=== PATIENT | female | born 1980 | race Caucasian/White ===

== ENCOUNTER 2025-06-04 21:56 | Emergency (ER) | payer OTHER, MEDICAID, SELFPAY ==
--- NOTE | ~2025-06-04 | XR_ITS ---
CLINICAL HISTORY: cp 2 view chest x-ray. Comparison: None provided Findings: The lungs appear clear. There is no consolidation, effusion, or pneumothorax. Cardiomediastinal silhouette is within normal limits. IMPRESSION: No acute cardiopulmonary abnormality. This document has been electronically signed by: Efra Valle MD on 06/04/2025 23:00:26
--- NOTE | 2025-06-04 22:00 | ECG_ITS ---
Test Reason : CP Blood Pressure : */* mmHG Vent. Rate : 106 BPM Atrial Rate : 106 BPM P-R Int : 144 ms QRS Dur : 90 ms QT Int : 352 ms P-R-T Axes : 51 62 19 degrees QTcB Int : 467 ms Sinus tachycardia Possible Left atrial enlargement Borderline ECG No previous ECGs available Referred By: Generic ED Physician Electronically Signed By: KODAK HICKS MD
[2025-06-04 22:11] VITALS: BP 152/76; PULSE 112; RESP 18; TEMP 37; O2SAT 96; BMI 45.5
[2025-06-04 22:12] LABS: MANUAL DIFF FLAG NO
[2025-06-04 22:13] LABS: Hematocrit 36.9 % (37.0-47.0); Hemoglobin 12.7 g/dl (12.0-16.0); Imm Gran Abs Auto 0.02 X10*3/uL (0.00-0.03); Imm Gran Pct Auto 0.2 % (0.0-0.4); Lymphocytes Absolute Auto 2.4 X10*3/uL (1.2-4.9); Mean Corpuscular HGB Conc 34.4 g/dl (31.0-35.0); Mean Corpuscular Hemoglobin 29.0 pg (27.0-33.0); Mean Corpuscular Volume 84.2 fL (80.0-98.0); NRBC Abs Auto 0.000 X10*3/uL (0.0-0.012); NRBC Pct Auto 0.0 /100WBC (0.0-0.2); Platelet Count 219 X10*3/uL (160-400); Red Blood Count 4.38 X10*6/uL (4.20-5.50); White Blood Count 8.3 X10*3/uL (4.8-10.8)
[2025-06-04 22:26] LABS: Alanine Aminotransferase 21 U/L (0-31); Albumin Level 4.2 g/dL (3.5-5.0); Alkaline Phosphatase 72 U/L (39-117); Anion Gap 15 (12-20); Aspartate Amino Transferase 19 U/L (5-31); Blood Urea Nitrogen 18 mg/dL (9-16); Calcium 9.2 mg/dL (8.4-10.2); Carbon Dioxide 25 mmol/L (22-29); Chloride 104 mmol/L (96-108); Creatinine Clr Calc Pharmacy 123.3; Estimated Glomerular Filt Rate > 60; Potassium 4.0 mmol/L (3.3-5.1); Sodium 140 mmol/L (135-145); Total Protein 7.2 g/dL (6.5-8.0)
[2025-06-04 22:34] LABS: Troponin-I High Sensitivity < 2.7 ng/L (<3.5-17.0)
[2025-06-05 00:28] VITALS: BP 119/61; PULSE 87; RESP 16; O2SAT 98
--- NOTE | 2025-06-05 00:39 | ED_ITS ---
HPI - Chest Pain General Chief Complaint: Chest Pain Stated Complaint: chest pain Time Seen by Provider: 06/05/25 00:03 History of Present Illness ED Provider: Asad Greenberg MD HPI narrative: 45-year-old female with chronic central sternal chest pain intermittently. She has been having this ongoing for 3 weeks there has been no change she comes today to [place] for ?2nd opinion?. She tells me she has been in 3 [facility] EGDs with workups including but not limited to CT angio of the chest which excluded PE or other acute cardiopulmonary complications, negative D-dimer, stress test done yesterday she has not received the results of this but received no suggestion that this was abnormal or required emergent follow through. Pain is sharp and she reports that the sternum is tender there was no injuries there. Some exertion and eating worsening. Related Data Allergies Allergy/AdvReac Type Severity Reaction Status Date / Time No Known Allergies Allergy Verified 06/04/25 22:12 [facility] Social History Social History Advance Directives: No Advance Directives Information Provided: Yes Physical Exam 2 Exam: Exam: EXAM: Gen: Alert, awake, well appearing, well hydrated. Head: Atraumatic Eyes: Anicteric, Normal conjunctiva. ENT: Moist mucosa, no pallor. ? Neck: Supple. Skin: ?No observable rash or bruising on exposed or examined skin Respiratory: Breathing comfortably, No distress.Clear to auscultation bilaterally, symmetric chest expansion, No wheeze, rales, ronchi. Cardiovascular: Regular rate and rhythm. No murmurs or rub. Well perfused periphery, warm extremities. No edema. ? Abdominal: No focal tenderness. Soft, no objective distension. No palpable masses or obvious organomegaly. ?No guarding, no rebound tenderness or other peritoneal findings. : No flank tenderness. Neuro: Alert. Gross movement of all extremities intact. ? Psych: Calm. Cooperative. MSK: No grossly visible deformity. Vital signs: See flowsheet Vital Signs: Vital Signs: Last Vital Signs Temp 98.4 F 06/05/25 01:32 Pulse 90 06/05/25 01:32 Resp 18 06/05/25 01:32 BP 110/62 06/05/25 01:32 Pulse Ox 98 06/05/25 01:32 O2 Del Method Room Air 06/05/25 01:32 BMI result Body Mass Index 45.5 Procedures Procedure Narrative Procedure Narrative: EMERGENCY ULTRASOUND INTERPRETATION-Limited Echocardiography [This study was ordered, performed, and interpreted by myself. The study reveals: Impression: NORMAL LV FUNCTION, NO RV DYSFUNCTION, NO PERICARDIAL EFFUSION] [Emergent Cardiac for Indication: Views Used: PLAX, PSSA, A4 Pericardial Effusion/Tamponade Findings: NONE RV Dilation (> LV diam in 4ch apical): NONE Global LV Fxn: NORMAL IVC Dilation and Resp Variation: NORMAL Performed by: MD Yari Images were stored CPT:87241] Medical Decision Making Medical Decision Making MDM Narrative: Medical Decision Makin-year-old female with chronic intermittent mid upper sternal pain and tenderness without respiratory symptoms. Multiple recent ED visits and outpatient testing including stress testing, CT chest that are been reassuring per her verbal reporting. She is awake alert oriented initially was tachycardic, sinus this resolved without treatment to the 80s sinus rhythm. No arrhythmia seen on telemetry. Patient has reassuring workup here I reviewed workup done at [facility] including CT chest with no acute findings and exclusion of pulmonary emboli. Troponin negative, bedside echo here is reassuring. The patient was reassured by these results I do not think she has acute emergent cardiopulmonary etiology of her symptoms may be musculoskeletal. Preliminary Favored Differential Diagnosis: Costochondritis, musculoskeletal pain, less likely pericarditis, acute coronary syndrome, among additional considered etiologies Testing Interpreted Independently: Point of care ultrasound performed see results in my procedure note. ECG: Sinus tachycardia with no acute ischemic changes normal intervals and axis Radiology or Lab testing Results Reviewed: Not Applicable Consults: Not Applicable Independent Historians/External Chart Reviews: Extensive review of the patient's radiology studies [facility] Cerner/patient portal Social Determinants of Health Impacting MDM/Planning: Not Applicable Lab Data [facility] Lab Attestation statement: I reviewed the patient's lab results. 06/04/25 22:08 06/04/25 22:08 Labs: Lab Results 06/04/25 Range/Units 22:08 WBC 8.3 (4.8-10.8) X10*3/uL RBC 4.38 (4.20-5.50) X10*6/uL Hgb 12.7 (12.0-16.0) g/dl Hct 36.9 L (37.0-47.0) % MCV 84.2 (80.0-98.0) fL MCH 29.0 (27.0-33.0) pg MCHC 34.4 (31.0-35.0) g/dl RDW 13.1 (11.0-16.0) % Plt Count 219 (160-400) X10*3/uL MPV 9.4 (9.4-12.3) fL Immature Gran % (Auto) 0.2 (0.0-0.4) % Neut % (Auto) 61.8 (45-73) % Lymph % (Auto) 29.1 (20-40) % Walton % (Auto) 7.1 (2-11) % Eos % (Auto) 1.2 (0-4) % Baso % (Auto) 0.6 (0-2) % Lymph # (Auto) 2.4 (1.2-4.9) X10*3/uL Walton # (Auto) 0.6 (0.1-1.2) X10*3/uL Eos # (Auto) 0.1 (0.0-0.4) X10*3/uL Baso # (Auto) 0.1 (0.0-0.2) X10*3/uL Abs Immat Gran (auto) 0.02 (0.00-0.03) X10*3/uL Absolute Neuts (auto) 5.1 (2.0-8.3) x10*3/uL Absolute Nucleated RBC 0.000 (0.0-0.012) X10*3/uL Nucleated RBC % (auto) 0.0 (0.0-0.2) /100WBC Sodium 140 (135-145) mmol/L Potassium 4.0 (3.3-5.1) mmol/L Chloride 104 (96-108) mmol/L Carbon Dioxide 25 (22-29) mmol/L Anion Gap 15 (12-20) BUN 18 H (9-16) mg/dL Creatinine 0.78 (0.5-1.4) mg/dL Estim Creat Clear Calc 123.3 Estimated GFR > 60 Random Glucose 212 H (60-115) mg/dL Calcium 9.2 (8.4-10.2) mg/dL Total Bilirubin 0.5 (0.0-1.0) mg/dL AST 19 (5-31) U/L ALT 21 (0-31) U/L Alkaline Phosphatase 72 (39-117) U/L Troponin I High Sens < 2.7 (<3.5-17.0) ng/L Total Protein 7.2 (6.5-8.0) g/dL Albumin 4.2 (3.5-5.0) g/dL Discharge Plan Discharge Clinical Impression: Atypical chest pain Patient Disposition: Home, Self-Care Instructions: Chest Pain (ED) Additional Instructions: _ DISCHARGE DIAGNOSES: Chest pain unclear cause no suggestion of severe or emergent cardiac or pulmonary problem HISTORY OF PRESENTATION: ?3 weeks of chest pain EMERGENCY DEPARTMENT COURSE,TESTS, TREATMENTS: While in the ED today you had a bedside echocardiogram that was reassuring. You had blood work including cardiac enzyme tests/heart attack test this was negative. EKG was rapid but had no abnormalities. Your heart rate improved without any treatment. DISCHARGE MEDICATIONS: ?[We have made no changes to your regular medication regimen] FOLLOW-UP: ?Call your primary or general physician soon as possible to discuss your symptoms, your ED visit and to discuss follow up plans Continue with Cardiology follow up outpatient INSTRUCTIONS ?& RETURN PRECAUTIONS: If any symptoms change first call your primary physician, if it is after-hours your primary doctors office should have a provider auto self service station attendant you can speak with. If the symptoms are severe or very concerning to you then call 911 or return to the ED. Asad Greenberg MD Emergency Physician [facility] Interventions: ED Discharge Assessment Last Done: 06/05/25 01:32 Discharge Date/Time: 06/05/25 01:32 Print Language: [place]
--- OUTSIDE RECORDS SUMMARY | 2025-06-05 01:04 | XMS_ITS | Patient Health Record ---
Author Organization [facility] Address [address] [place] [address] Care Team Providers Care Ceo Name Role Phone Sara ROQUE, Mario Primary Care Provider Ronal Head Samina Unavailable [phone] Allergies No Known Allergies Results Component Value Reference Range Notes HEMOGLOBIN A1C (GLYCOHEMOGLO BIN) Reviewed date:11/23/2024 03:11:42 PM Interpretation: Performing Lab: Notes/Report: HEMOGLOBIN A1C % (HH) 6.7 HEMOGLOBIN A1C (GLYCOHEMOGLO BIN) Reviewed date:02/01/2025 08:06:16 AM Interpretation: Performing Lab: Notes/Report: HEMOGLOBIN A1C % (HH) 6.7 HEMOGLOBIN A1C (GLYCOHEMOGLO BIN) Reviewed date:04/06/2025 09:50:04 AM Interpretation: Performing Lab: Notes/Report: HEMOGLOBIN A1C % (HH) 6.5 Reason For Referral No Information Medications Medication SIG (Take, Route, Frequency, Duration) Notes Start Date End Date Status PriLOSEC OTC 20 MG 1 tablet 1/2 to 1 ho ur before morning meal Orally Once a day Active hydrOXYzine HCl 25 MG as directed Orally Not-Taking HumaLOG 100 UNIT/ML as directed Injection Active Jardiance 25 MG 1 tablet Orally Once a day Not-Taking Atorvastatin Calcium 10 MG as directed Orally Active ZyrTEC Allergy 10 MG 1 tablet Orally Onc e a day Active Levothyroxine Sodium 50 MCG 1 tablet in the morning on an empty stomach Orally Once a day Active Ozempic Not-Taking Extra Depth Orthopedic Shoes (1 Pair) with Customized Heat Molded Multidensity Innersoles (3 Pair) as directed Dx: NIDDM/Polyneuropathy (E11.42), Hammertoe Foot Deformity (M20.41,M20.42), Preulcerative Skin Lesion(s) (L85.1 02/03/2024 Active FLUoxetine HCl 20 MG as directed Orally Active buPROPion HCl 100 MG 1 tablet Orally Twi ce a day Active Lantus Active metFORMIN HCl 500 MG as directed Orally Active Invokana QD Not-Taking Immunizations Vaccine Route Administration Date Status Comme nts Influenza Unknown 08/14/2023 Administered Social History Tobacco Use: Social History Observation Description Date Details (start date - stop date) Never Smoker NA - NA Tobacco use other than smoking: Question Answer Notes Are you an other tobacco user? No Tobacco Control (Standard) Question Answer Notes Tobacco use: Nonsmoker Additional Findings: Tobacco non-user Current no nsmoker AUDIT-C (Standard) Question Answer Notes Did you have a drink containing alcohol in the p ast year? No Points 0 Interpretation Negative Problems Problem Type SNOMED Code ICD Code Onset Dates Problem Status W/U Status Risk Notes Problem Polyneuropathy due to type 2 diabetes mellitus (897421563) Type 2 diabetes mellitus with diabetic polyneuropathy (E11.42) Active confirmed Vital Signs Heart Rate 93 /min 11/23/2024 Blood pressure diastolic 62 mm Hg 04/06/2025 Height 5FT 6IN in 04/06/2025 Blood pressure systolic 110 mm Hg 04/06/2025 Weight 283 lbs 04/06/2025 BMI 45.67 kg/m2 04/06/2025 Procedures Procedure Date Ordered Date Performed Result Body Sit e 67119-PKOJKWK NAIL, 6 OR MORE 06/11/2024 N/A 71761- Debride <25 sq cm 06/11/2024 N/A 88449-QBBK SKIN LESIONS, OVER 4 06/11/2024 N/A 71880-QREOXQH NAIL, 6 OR MORE 08/24/2024 N/A 31351-QLBC SKIN LESIONS, OVER 4 08/24/2024 N/A 76521-MTTZGCM NAIL, 6 OR MORE 11/23/2024 N/A 73835-TYFU SKIN LESIONS, OVER 4 11/23/2024 N/A 01625-CJCUVOF NAIL, 6 OR MORE 02/01/2025 N/A 82429-CIVZ SKIN LESIONS, OVER 4 02/01/2025 N/A 37025-WLREPBB NAIL, 6 OR MORE 04/06/2025 N/A 08830-YVOA SKIN LESIONS, OVER 4 04/06/2025 N/A Encounters Encounter Location Date Provider Diagnosis [address] [place] [address] 06/11/2024 Samina Black Skin ulcer of toe of right foot, limited to breakdown of skin L97.511 ; Type 2 diabetes mellitus with diabetic polyneuropathy E11.42 and Tinea unguium B35.[address] [place] [address] 08/24/2024 Samina Black Type 2 diabetes desiree itus with diabetic polyneuropathy E11.42 ; Tinea unguium B35.1 ; 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 ; Acquired hallux interphalangeus of left foot M20.12 ; Hammer toe of right foot M20.41 and Hammer toe of left foot M20.[address] [place] [place] [address] 11/23/2024 Samina Black Tinea unguium B35.1 and Type 2 diabetes mellitus with diabetic polyneuropathy E11.[address] [place] [place] [address] 02/01/2025 Samina Black Tinea unguium B35.1 ; Type 2 diabetes mellitus with diabetic polyneuropathy E11.42 ; Other hammer toe(s) (acquired), right foot M20.41 ; Other hammer toe(s) (acquired), left foot M20.42 ; Plantar flexed metatarsal bone of right foot M21.6X1 and Plantar flexed metatarsal bone of left foot M21.6X2 [address] [address] 04/06/2025 Samina Black Tinea unguium B35.1 and Type 2 diabetes mellitus with diabetic polyneuropathy E11.[address] [address] 04/29/2025 Samina Black Assessments Encounter Date Diagnosis (ICD Code) Assessment Notes Treatment Notes Treatment Clinical Notes Section Notes 06/11/2024 Type 2 diabetes mellitus with diabetic polyneuropathy (ICD-10 - E11.42) 06/11/2024 Skin ulcer of toe of right foot, limited to breakdown of skin (ICD-10 - L97.511) Patient Educated with: WOUND CARE INSTRUCTIONS. pdf (WOUND CARE INSTRUCTIONS. pdf) 08/24/2024 Tinea unguium (ICD-10 - B35.1) 08/24/2024 Type 2 diabetes mellitus with diabetic polyneuropathy (ICD-10 - E11.42) 11/23/2024 Tinea unguium (ICD-10 - B35.1) 11/23/2024 Type 2 diabetes mellitus with diabetic polyneuropathy (ICD-10 - E11.42) 02/01/2025 Tinea unguium (ICD-10 - B35.1) 04/06/2025 Tinea unguium (ICD-10 - B35.1) 04/06/2025 Type 2 diabetes mellitus with diabetic polyneuropathy (ICD-10 - E11.42) 08/24/2024 Acquired hallux interphalangeus of right foot (ICD-10 - M20.11) 02/01/2025 Type 2 diabetes mellitus with diabetic polyneuropathy (ICD-10 - E11.42) 02/01/2025 Other hammer toe(s) (acquired), right foot (ICD-10 - M20.41) Response to treatment,Impr ovement 06/11/2024 Tinea unguium (ICD-10 - B35.1) 08/24/2024 Acquired hallux interphalangeus of left foot (ICD-10 - M20.12) 02/01/2025 Other hammer toe(s) (acquired), left foot (ICD-10 - M20.42) Response to treatment,Impr ovement 02/01/2025 Plantar flexed metatarsal bone of right foot (ICD-10 - M21.6X1) 08/24/2024 Hammer toe of right foot (ICD-10 - M20.41) 08/24/2024 Hammer toe of left foot (ICD-10 - M20.42) 02/01/2025 Plantar flexed metatarsal bone of left foot (ICD-10 - M21.6X2) 06/11/2024 Other Plan Of Treatment Pending Test Test Name Order Date X ray : Foot, left 3V 08/26/2014 70331-LATUDFF NAIL, 6 OR MORE 09/17/2016 27515-WKVJLXR NAIL, 6 OR MORE 10/18/2016 40378-YAMIXYR NAIL, 6 OR MORE 01/31/2023 52769-ACUPNTT NAIL, 6 OR MORE 02/03/2024 07836-OIEKSCE NAIL, 6 OR MORE 06/11/2024 50469-ZXHNTWJ NAIL, 6 OR MORE 08/24/2024 22891-JOAKUPV NAIL, 6 OR MORE 11/23/2024 42789-MWHZZOM NAIL, 6 OR MORE 02/01/2025 23484-NZJJASN NAIL, 6 OR MORE 04/06/2025 91296-Hxolmmub Plate 01/31/2023 39008- Debride <25 sq cm 10/18/2016 99152- Debride <25 sq cm 09/17/2016 18304- Debride <25 sq cm 02/12/2024 78417- Debride <25 sq cm 03/12/2024 31632- Debride <25 sq cm 05/27/2024 56036- Debride <25 sq cm 06/11/2024 83068-KNCTVFB SKIN/TISSUE 08/26/2014 39918-SAMP SKIN LESIONS, OVER 4 04/02/20 24 16586-KJNL SKIN LESIONS, OVER 4 02/01/20 23 89294-ZJGU SKIN LESIONS, OVER 4 02/03/20 24 36047-TTFJ SKIN LESIONS, OVER 4 06/11/20 24 93628-YDSZ SKIN LESIONS, OVER 4 08/24/20 24 06856-EUTI SKIN LESIONS, OVER 4 02/02/20 25 22403-KFXX SKIN LESIONS, OVER 4 11/23/19 25 88223-JXIY SKIN LESIONS, OVER 4 04/06/20 25 54369-IFEV SKIN LESIONS, 2 TO 4 05/27/20 24 00806-ALAQ SKIN LESIONS, 2 TO 4 03/12/20 24 Next Appt Details Provider Name:Samina Head , 06/15/2025 09:15:00 AM, [address] [place] [address], [place], [address], Insurance Providers Payer Name Payer Address Payer Phone Subscriber Number Group Number Insured Name Patient Relationship to Insured Coverage Start Date Coverage End Date [employer] Benefits [address] [address] [place] [address] [id number] Jason Melendez Spouse - patient is the spouse of the insured Medical (General) History Medical History History ICD Code Anxiety Depression Thyroid disorder Diabetes mellitus Headaches/Migraines Numbness Neuropathy Other hammer toe(s) (acquired), right fo ot M20.41 Other hammer toe(s) (acquired), left rosemary t M20.42 Surgical History Surgery Date(Month/Year) cholecystectomy 05/2015 Hospitalization History Reason Date(Month/Year) Eloisa Hitchcock, Ketoacidosis 06/19/24, 06/03 06/26 foot ulcer 01/2022
[2025-06-05 01:28] VITALS: BP 110/62; PULSE 90; RESP 18; TEMP 36.9; O2SAT 98
[2025-06-05 01:32] VITALS: BP 110/62; PULSE 90; RESP 18; TEMP 36.9; O2SAT 98
== END 2025-06-05 01:32 | disposition home or self-care (01) ==
PROVIDERS: Emergency Provider Emergency Medicine; PCP Internal Medicine
DX: R07.9 Chest pain, unspecified (principal)
CPT/HCPCS: 36415; 71046; 80053; 84484; 85025; 93005; 99283; 99285

== ENCOUNTER → 2025-06-04 22:00 | Outpatient (BNV) | payer OTHER, MEDICAID, SELFPAY | PROVIDERS: Emergency Provider Emergency Medicine; PCP Internal Medicine; Visit Provider Internal Medicine Cardiovascular Disease | DX: R00.0 Tachycardia, unspecified (principal) | CPT/HCPCS: 93010 ==

== ENCOUNTER → 2025-06-04 22:16 | Outpatient (BNV) | payer BC, MEDICAID, SELFPAY | PROVIDERS: Emergency Provider Emergency Medicine; PCP Internal Medicine; Visit Provider Radiology Diagnostic Radiology | DX: R07.9 Chest pain, unspecified (principal) | CPT/HCPCS: 71046 ==